=== PATIENT | female | born 1975 | race Caucasian/White ===

== ENCOUNTER → 2017-04-19 | Outpatient (CLI) | payer OTHER ==
[~2017-04-19] MED LIST: CYANOCOBAL1000 MCG/M INJ; IBUPROFEN800 MG PO; LISINOPRIL PO; PANTOPRAZOLE SO40 MG PO; SYNTHROID PO
--- NOTE | ~2017-04-19 | US5 ---
[facility] A Service of [facility] RADIOLOGY TEXT RESULTS PATIENT: RAIN NEWSOME LOCATION: [facility] : 75 UNIT #: [id number] AGE: [address]: Sarthak Naqvi III, MD SEX: F ORDER DR: [id number] [facility]. [place], [place] [address] [id number] O MR#: [id number] Acc #: [id number] NAME: RAIN NEWSOME : 1975 SEX: F STUDY DATE/TIME: 04/19/2017 8:09 UNIT: [facility] ROOM: STUDY DESCRIPTION: US Abdominal Complete Attending Physician: Sarthak Naqvi III, M.D. Referring Physician: Sarthak Naqvi III, M.D. Ordering Physician: Sarthak Naqvi III, M.D. Primary Care Physician: Debbie Rios M.D. MEDICAL IMAGING REPORT This report is preliminary unless electronic signature is present EXAM Abdominal sound complete 04/19/2017 INDICATIONS 41-year-old female with abdominal pain for 2 weeks. Hypertension. No history of abdominal surgery. Sonographic imaging of the abdomen was performed. COMPARISON STUDIES No comparisons. FINDINGS Segmentally visualized aorta and IVC are unremarkable. Visualized pancreas unremarkable. The kidneys are nonobstructed. The right measures 11.8 cm long axis and the left 9.5 cm. No shadowing stone on either side. Spleen measures 8.9 cm long axis. Liver measures 14.8 cm long axis. No focal liver mass, intrahepatic ductal dilatation or ascites. Equivocal mild fatty infiltration of the liver. The gallbladder is sonographically unremarkable. Extrahepatic common bile duct measures 3 mm. IMPRESSION Equivocal mild fatty infiltration of the liver, otherwise negative examination. Dictated by... Alex Dejesus M.D. THIS IS AN ELECTRONICALLY VERIFIED REPORT Alex Dejesus M.D. at 04/19/2017 7:05 PM RUBINA/inga [facility] A Service of [facility] RADIOLOGY TEXT RESULTS PATIENT: RAIN NEWSOME LOCATION: [facility] #: [id number] : 75 UNIT #: [id number] AGE: [address]: Sarthak Naqvi III, MD SEX: F ORDER DR: TD: 04/19/2017 15:09 JOB #: [id number] MEDICAL IMAGING REPORT Page 1 of 1 COPY
--- NOTE | ~2017-04-19 | NM22 ---
[facility] A Service of [facility] RADIOLOGY TEXT RESULTS PATIENT: RAIN NEWSOME LOCATION: [facility] [place] : 75 UNIT #: [id number] AGE: [address]: Sarthak Naqvi III, MD SEX: F ORDER DR: [id number] [place], [place] [address] [id number] O MR#: [id number] Acc #: [id number] NAME: RAIN NEWSOME : 1975 SEX: F STUDY DATE/TIME: 04/19/2017 8:45 UNIT: [facility] [place] ROOM: STUDY DESCRIPTION: SHIRA Hepatobiliary W GB Pharm Attending Physician: Sarthak Naqvi III, M.D. Referring Physician: Sarthak Naqvi III, M.D. Ordering Physician: Sarthak Naqvi III, M.D. Primary Care Physician: Debbie Rios M.D. MEDICAL IMAGING REPORT This report is preliminary unless electronic signature is present EXAM Nuclear medicine HIDA scan with Kinevac DATE 04/19/2017 HISTORY 41-year-old female with acute abdominal pain per referring physician history. Patients history states severe hunger pains, left upper quadrant pain, pain worsens with eating. Bloating. Blood in stool. Constipation. Gassy/bulging. Epigastric pressure. Early satiety. Patient states symptoms began 3 weeks ago. COMPARISON Complete abdominal ultrasound 04/19/2017. FINDINGS Following the intravenous administration of 5.64 mCi technetium-99m Choletec, anterior planar images were obtained of the abdomen at 15 minute intervals for 60 minutes. Normal radiopharmaceutical uptake is demonstrated throughout the liver parenchyma. The gallbladder is promptly visualized within the first 30 minutes of imaging. Subsequently, 1.4 mcg Kinevac was administered intravenously and a time-activity curve was generated. The calculated gallbladder ejection fraction is 84%. There is clearance of radiopharmaceutical into the small bowel over the course of examination, indicating patency of the common bile duct. IMPRESSION Normal HIDA scan. Ejection fraction at 84%. [facility] A Service of [facility] RADIOLOGY TEXT RESULTS PATIENT: RAIN NEWSOME LOCATION: [facility] [place] : 75 UNIT #: [id number] AGE: [address]: Sarthak Naqvi III, MD SEX: F ORDER DR: Dictated by... Deysi Jiang M.D. THIS IS AN ELECTRONICALLY VERIFIED REPORT Deysi Jiang M.D. at 04/22/2017 8:30 AM MIGUEL/haylie TD: 04/19/2017 16:03 JOB #: [id number] MEDICAL IMAGING REPORT Page 1 of 1 COPY
== END | disposition home or self-care (01) ==
LOC: CGUS 07:25
DX: R10.9 Unspecified abdominal pain (principal); I10 Essential (primary) hypertension; Z98.890 Other specified postprocedural states
CPT/HCPCS: 76700; 78227; A9537; J2805

== ENCOUNTER → 2017-05-07 | Day surgery (SDC) | payer OTHER ==
--- NOTE | ~2017-05-07 | OR ---
Unit #: [id number] #: [id number] Patient: RAIN NEWSOME [id number] [place], [place] [address] [id number] O MR#: [id number] NAME: RAIN NEWSOME ROOM: Date of Procedure: 05/07/2017 Admission Date: 05/07/2017 Surgeon: Sarthak Naqvi III, M.D. : 1975 Attending Physician: Sarthak Naqvi III, M.D. Primary Care Physician: Debbie Rios M.D. OPERATIVE REPORT PREOPERATIVE DIAGNOSES Epigastric pain, reflux, and rectal bleed. POSTOPERATIVE DIAGNOSES Mild esophagitis and normal colonoscopy. PROCEDURES PERFORMED Esophagogastroduodenoscopy with biopsy and colonoscopy to cecum. ANESTHESIA MAC. SPECIMEN Distal esophagus was biopsied multiple times and close sample was sent. COMPLICATIONS None apparent. INDICATIONS FOR PROCEDURE This is a 41-year-old lady, who presented with epigastric pain, reflux, and rectal bleed. She has had a negative biliary workup. She is here today for upper and lower endoscopy. DESCRIPTION OF PROCEDURE After consent was obtained, the patient was brought to the endoscopy suite and placed in the left lateral decubitus position. We titrated the above sedation and I passed an EGD scope easily into the esophagus under direct visualization. She had normal peristalsis. No evidence of any erosions, but she did have some mild esophagitis. There was no hiatal hernia seen. I did take apprenticeship representative biopsies at the distal esophagus and this was labeled at 38 cm and sent to pathology. I then advanced the scope on into the stomach. She had normal mucosa. No evidence of any gastritis or ulcers. The pylorus was patent and the first and second portions of the duodenum appeared normal. I then retroflexed the scope within the cardia of the stomach and did not see any evidence of a hiatal hernia. I took a biopsy of the antrum for ROBBIE testing. The scope was then straightened and carefully withdrawn. I then performed a rectal exam and did not feel any masses. The scope was placed within the rectal vault. Air was insufflated. I navigated the scope all the way to the cecum without any difficulty. She had normal mucosa. No evidence of any polyps or masses and no diverticular disease was seen. The scope was retroflexed within the rectum and there were no internal hemorrhoids or other masses seen. Unit #: [id number] #: [id number] Patient: RAIN NEWSOME The scope was then carefully withdrawn. The patient tolerated the procedure without any problems and returned to the recovery room in stable condition. Dictated by... Sarthak Naqvi III, M.D. VCL/ta TD: 05/11/2017 02:41 JOB #: [id number] OPERATIVE REPORT Page 1 of 1 X Sarthak Naqvi III, MD PROCEDURE OPERATIVE NOTE
== END | disposition home or self-care (01) ==
LOC: COPS 09:53
DX: K62.5 Hemorrhage of anus and rectum (principal); K21.0 Gastro-esophageal reflux disease with esophagitis; E03.9 Hypothyroidism, unspecified; J30.9 Allergic rhinitis, unspecified; I10 Essential (primary) hypertension; F41.9 Anxiety disorder, unspecified; F17.210 Nicotine dependence, cigarettes, uncomplicated; Z79.899 Other long term (current) drug therapy; Z82.3 Family history of stroke; Z98.51 Tubal ligation status
CPT/HCPCS: 87077; 88305; J2250